=== PATIENT | female | born 1945 | race Caucasian/White ===

== ENCOUNTER 2019-07-13 05:30 | Day surgery (SDC) | payer MEDICARE, SELFPAY ==
[2019-07-12 12:58] VITALS: BMI 29.0
--- NOTE | 2019-07-13 | SCC_ITS ---
Procedure Done: [place] [address]. [place]amm[place]oe [place] cpt 28125. 3 seconds of fluoroscopic guidance, for a cumulative dose of 0.035 mGy, was provided to Dr. Edwards by the radiology department. C-arm images of the right foot were saved for the patient's permanent record. [facility]
--- NOTE | 2019-07-13 | SCC_ITS ---
Procedure Done: Right bunionectomy with double osteotomy cpt 97620. Right [place] hammertoe [place] cpt 20610. 3 seconds of fluoroscopic guidance, for a cumulative dose of 0.035 mGy, was provided to Dr. Edwards by the radiology department. C-arm images of the RIGHT foot were saved for the patient's permanent record. [facility]
[2019-07-13 05:34] VITALS: BP 159/87; PULSE 75; RESP 18; TEMP 36.6; O2SAT 99
--- NOTE | 2019-07-13 06:25 | ANES.PREANES ---
Pre-Anesthetic Assessment Pre-Anesthetic Assessment: Height/Weight: Height 1.68 m Weight 81.647 kg Preop Diagnosis: Bunion and second hammertoe, right foot Proposed Procedure: Operation Date: 07/13/19 07:00 Proposed Procedures p Bunionectomy Narinder [id number] M21.611 M2.41(Right) - Tarik Edwards DPM s Flynn Osteotomy(Right) - Tarik Edwards DPM s Hammertoe Correction(Right) - Tarik Edwards DPM Last intake: Intake Last Liquid Date 07/12/19 Last Liquid Time 18:00 Last Solid Date 07/12/19 Last Solid Time 18:00 Social: Packs per day: 1-2 cig 16-44years Comment: quit 30years Exam: Pre-Anes Outpt Exam: alert and oriented x 3 Airway: Submandibular: WNL Cervical ROM: WNL MP: 1 Dentition: Caps Additional comments: top frnot : Comments: s/p nephrectomy Hepatic: Hepatic: Cirrohsis GI: Comments: s/p colon resection Anesthetic Plan: ASA status: II Anesthesia: MAC PFSH Anesthesia PFSH: Medical History (Updated 07/12/19 @ 19:13 by Tarik Edwards DPM) High cholesterol (Acute) Hx of cancer of uterus (Acute) Hypertension (Acute) Surgical History (Updated 07/12/19 @ 19:12 by Tarik Edwards DPM) History of back surgery (Acute) Hx of cholecystectomy (Acute) Hx of colectomy (Acute) Hx of colonoscopy (Acute) Hx of hysterectomy (Acute) Hx of kidney removal (Acute) Data Anesthesia Cardiac Studies: No Data to Display
[2019-07-13] MEDS: sodium chloride 0.9% 1,000 ML 30 ML IV (06:58)
--- NOTE | 2019-07-13 08:33 | XR_ITS ---
WS: [id number] Right foot, 3 views, 07/13/2019 Clinical Data: post op Comparison: Right foot, 06/11/2019 Findings: The patient has had an osteotomy of the distal right first metatarsal with an orthopedic screw in the distal bone. There is an orthopedic plate at the medial base of the right first proximal phalanx fix ed with 2 small orthopedic screws. There is a pin extending the length of the right toe. XR/XR foot RT min 3V* [id number] Impression: 1. Bunionectomy of the right first metatarsal 2. Small plate at the base of the right first proximal phalanx, orthopedic scre w at the osteotomy of the distal right first metatarsal and pin stabilizing the right second toe.
[2019-07-13 08:36] VITALS: BP 135/72; PULSE 67; RESP 16; TEMP 36.4; O2SAT 96
[2019-07-13 08:51] VITALS: BP 148/71; PULSE 71; RESP 16; TEMP 36.6; O2SAT 97
--- NOTE | 2019-07-15 13:04 | P.OP_ITS ---
Operative Report Date of procedure: 07/15/19 Pre-op Diagnosis: Bunion and second hammertoe, right foot Post-op diagnosis: same Procedure Done: Right bunionectomy with double osteotomy cpt 02287. Right second hammertoe repair cpt 01591. Implants: [place] 28 partially-threaded cannulated headless screw 3.5 mm x 22 mm. [place] 28 nitinol staple 8 mm x 8 mm x 8 mm, angled. 0.062 K wire. Pathology: none sent Surgeon: Tarik Edwards Paper Products Inspector: See intraoperative documentation report Anesthesia: MAC Estimated blood loss (mL): 2 IV fluids (mL): 0 Urine output (mL): 0 Complications: None Condition: stable Disposition: PACU Brief History: Patient is a pleasant 73 old female who has had persistent pain at her right bunion deformity and right second hammertoe. She states that the pain has been significant and affects her ability to carry everyday activities and hobbies. She has failed conservative measures consisting of supportive shoes, accommodative shoes, padding, NSAIDs and activity modifications. Risks include pain, bleeding, numbness, infection, failure to correct deformity, overcorrection of deformity, hallux varus, transfer pressure, delayed union, malunion, swelling, bruising, hardware failure, painful retained hardware and need for further surgical intervention. Patient wishes to proceed. Procedure: Under mild sedation the patient was brought to the operating room and placed on the operating table in supine position. A timeout was performed. Anesthesia was administered by the anesthesia service. Local anesthesia was injected by myself consisting of 30 cc of 0.5% Marcaine plain and a right male block and second ray block fashion. Well-padded pneumatic tourniquet was then applied to the right ankle. Right lower extremity was then scrubbed, prepped and draped utilizing normal aseptic technique. Right foot was examined a weighted with a Esmarch bandage and the tourniquet was inflated to 250 mmHg. Attention was directed to the dorsal medial aspect of the right first metatarsal phalangeal joint where a linear longitudinal incision was made medial and parallel to the extensor hallucis longus tendon. Care was taken to retract and preserve neurovascular and tendinous structures. Bleeders were ligated and cauterized as necessary. Linear capsulotomy was performed in the head of the first metatarsal and base of the proximal phalanx were freed from their soft tissue and capsular attachments. Bony overgrowth at the medial eminence of the first metatarsal head was transected with a sagittal saw and passed from the operative field. Access guide was inserted this was a K wire in the medial head of the first metatarsal followed by a chevron type osteotomy with apex pointing distally this was performed through and through was with sagittal saw and the head of the first metatarsal was shifted laterally in a more corrected position and impacted on the first metatarsal, this was temporarily fixated followed by insertion of a [place] 28 3.5 mm x 22 mm headless compression screw utilizing standard AO technique with excellent bony apposition and compression noted. Temporary fixation was removed. Bony shelf at the medial aspect of the first metatarsal was transected and passed from operative field, rough edges were then smoothed. Lateral release was then performed in standard fashion at the first intermetatarsal space and the hallux was noted to be in a more corrected position however still did have a valgus component necessitating a Flynn osteotomy. This was carried out at the base of the proximal phalanx right hallux and fixated with a compression staple with excellent bony apposition and compression noted. Hallux was in a rectus position. Incision sites were flushed with saline solution. Medially the capsule was closed with 2-0 Vicryl. Subcutaneous tissue closed with 4-0 Vicryl and skin closed with 5-0 Monocryl in a running intermittent cuticular fashion. Attention was then directed to the dorsum of the right second toe where a linear longitudinal incision was made at the dorsal aspect of the proximal interphalangeal joint with a #15 blade. Dissection was carried down through subcutaneous tissue utilizing a combination of blunt and sharp technique. Transverse extensor tenotomy was performed and the head of the proximal phalanx was freed from its soft tissue attachments and transected with a sagittal saw this was passed from operative field, base of the intermediate phalanx was denuded of articular surface utilizing a rondure. Incision was flushed with saline solution. A 6 2 K wire was then integrated out the base of the intermediate phalanx to the distal toe and retrograded into the base of the proximal phalanx this was confirmed with fluoroscopy. Excess wire was trimmed, bent at 90 degrees and covered with a Moi ball. Incision was flushed with saline, extensor and capsular structure was closed with 4-0 Vicryl. Skin closed with 4-0 nylon. Incision was dressed with benzoin, Steri's, Adaptic, 4 x 4's, Kerlix and Rakesh, area of lateral release was closed with 4-0 nylon. And dressed in like fashion. Tourniquet was deflated and a prompt hyperemic response was noted to the distal digits of the right foot. Patient tolerated the procedure well and was transferred to the PACU with vital signs stable and vascular status intact. Following a period of postoperative monitoring she will be discharged home she was provided a cam boot and is to wear this at all times and ambulating. She is to elevate her right foot at all times while at rest. She is provided my cell phone number and is to contact me with postoperative questions or concerns.
--- NOTE | 2019-07-16 | XR_ITS ---
WS: [id number] INTRAOPERATIVE TECHNIQUE: 1 Spot fluoroscopic images for intraoperative purposes. FLUOROSCOPY TIME: 3 seconds CLINICAL INFORMATION: Right bunionectomy COMPARISON: None. FINDINGS: Pin fixation second digit. Lateral fastener fixation first proximal phalanx. Screw fixation head of f irst metatarsal. XR/XR foot RT 2V [id number] IMPRESSION: Images obtained for intraoperative purposes.
== END 2019-07-13 09:15 | disposition home or self-care (01) ==
PROVIDERS: Family Provider Family Medicine; PCP Family Medicine; Visit Provider Podiatrist Foot & Ankle Surgery
PROC: (CPT 28296; principal; 2019-07-13 07:00)
PROC: (CPT 28298; 2019-07-13 07:00)
PROC: (CPT 28285; 2019-07-13 07:00)
DX: M21.611 Bunion of right foot (principal); M20.41 Other hammer toe(s) (acquired), right foot; E78.5 Hyperlipidemia, unspecified; I10 Essential (primary) hypertension; M19.90 Unspecified osteoarthritis, unspecified site; Z82.49 Family history of ischemic heart disease and other diseases of the circulatory system
CPT/HCPCS: 28285; 28299; 12345; 73620; 73630; 76000; C1713; J0690; J2001; J2704; J3010; J3490; J7030

== ENCOUNTER → 2019-07-26 14:53 | Outpatient (BNVA) | payer MEDICARE, SELFPAY | PROVIDERS: Family Provider Family Medicine; PCP Family Medicine; Visit Provider Podiatrist Foot & Ankle Surgery | DX: Z48.89 Encounter for other specified surgical aftercare (principal) | CPT/HCPCS: 73630 ==

== ENCOUNTER 2019-07-26 15:57 | Outpatient (CLI) | payer MEDICARE, SELFPAY | END 2019-07-26 15:58 | disposition home or self-care (01) | LOC: SPT 15:58 | PROVIDERS: Family Provider Family Medicine; PCP Family Medicine; Visit Provider Podiatrist Foot & Ankle Surgery | DX: M20.41 Other hammer toe(s) (acquired), right foot (principal); M21.611 Bunion of right foot | CPT/HCPCS: L4361 ==

== ENCOUNTER → 2019-08-08 10:55 | Outpatient (BNVA) | payer MEDICARE, SELFPAY | PROVIDERS: Family Provider Family Medicine; PCP Family Medicine; Visit Provider Podiatrist Foot & Ankle Surgery | DX: Z48.89 Encounter for other specified surgical aftercare (principal); M21.611 Bunion of right foot; M20.41 Other hammer toe(s) (acquired), right foot | CPT/HCPCS: 73630 ==

== ENCOUNTER 2019-08-08 14:16 | Outpatient (CLI) | payer MEDICARE, SELFPAY | END 2019-08-08 14:17 | disposition home or self-care (01) | LOC: SPT 14:17 | PROVIDERS: Family Provider Family Medicine; PCP Family Medicine; Visit Provider Podiatrist Foot & Ankle Surgery | DX: M20.41 Other hammer toe(s) (acquired), right foot (principal) | CPT/HCPCS: L3100 ==

== ENCOUNTER → 2019-08-23 13:03 | Outpatient (BNVA) | payer MEDICARE, SELFPAY | PROVIDERS: Family Provider Family Medicine; PCP Family Medicine; Visit Provider Podiatrist Foot & Ankle Surgery | DX: Z48.89 Encounter for other specified surgical aftercare (principal); M21.611 Bunion of right foot; M20.41 Other hammer toe(s) (acquired), right foot | CPT/HCPCS: 73630 ==

== ENCOUNTER 2019-08-31 08:50 | Outpatient (CLI) | payer MEDICARE, SELFPAY | END 2019-08-31 08:51 | disposition home or self-care (01) | PROVIDERS: Family Provider Family Medicine; PCP Family Medicine; Visit Provider Family Medicine | DX: N39.0 Urinary tract infection, site not specified (principal) | CPT/HCPCS: 87086 ==

== ENCOUNTER → 2019-09-19 10:35 | Outpatient (BNVA) | payer MEDICARE, SELFPAY | PROVIDERS: Family Provider Family Medicine; PCP Family Medicine; Visit Provider Podiatrist Foot & Ankle Surgery | DX: Z48.89 Encounter for other specified surgical aftercare (principal); M21.611 Bunion of right foot | CPT/HCPCS: 73630 ==

== ENCOUNTER → 2019-10-11 13:13 | Outpatient (BNVA) | payer MEDICARE, SELFPAY | PROVIDERS: Family Provider Family Medicine; PCP Family Medicine; Visit Provider Nurse Practitioner Family | DX: N39.0 Urinary tract infection, site not specified (principal) | CPT/HCPCS: 80053; 81001; 87077; 87086; 87186 ==

== ENCOUNTER 2019-12-11 08:17 | Outpatient (CLI) | payer MEDICARE, SELFPAY ==
--- NOTE | 2019-12-11 08:00 | US_ITS ---
WS: [id number] ULTRASOUND RENAL TECHNIQUE: Ultrasound examination of both kidneys. CLINICAL INFORMATION: [email or web address] [place]8:[place]. APPT TO FOLLOW COMPARISON: May 30, 2019 FINDINGS: RIGHT: Moderate hydronephrosis right kidney. Echogenicity: Normal. Cortical thickness: 2.1 cm; Normal. Hydronephrosis: Moderate Perinephric fluid: None. Right kidney measures: 13.0 cm x 6.3 cm x 6.7 cm. LEFT: Left kidney removed. Incomplete bladder emptying. Normal visualized aorta. US/US renal BI* [id number] IMPRESSION: 1. Moderate hydronephrosis right kidney unchanged since May 30, 2019. This is slightly improved post void. 2. Left kidney removed. 3. Incomplete bladder emptying.
== END 2019-12-11 08:18 | disposition home or self-care (01) ==
LOC: US 08:21
PROVIDERS: PCP Family Medicine; Visit Provider Urology
DX: N13.5 Crossing vessel and stricture of ureter without hydronephrosis (principal); N13.30 Unspecified hydronephrosis; N39.0 Urinary tract infection, site not specified; Z90.5 Acquired absence of kidney
CPT/HCPCS: 76770; 80048; 81001

== ENCOUNTER 2020-01-17 13:10 | Outpatient (CLI) | payer MEDICARE, SELFPAY ==
--- NOTE | 2020-01-17 13:25 | MM_ITS ---
WS: [id number] Bilateral screening digital mammogram, 01/17/2020 Clinical Data: SCREEN Comparison: 11/24/2018, 10/07/2017, 10/04/2016, 09/23/2015, 03/30/2013, 02/21/2012, 01/17/2009. Findings: The breast parenchymal pattern shows fat replacement. No spiculated masses or clustered calcification s are seen. There are no secondary signs of carcinoma. MM/[place] [id number] Impression: 1. Negative bilateral mammogram unchanged. 2. Recommend annual screening mammograms. BIRADS: 1-Negative FOLLOW UP: 1 Year Follow-up The CAD mechanical and auto body car checker was used.
== END 2020-01-17 13:11 | disposition home or self-care (01) ==
LOC: RADSHAW 13:16
PROVIDERS: PCP Family Medicine; Visit Provider Family Medicine
DX: Z12.31 Encounter for screening mammogram for malignant neoplasm of breast (principal)
CPT/HCPCS: 77067

== ENCOUNTER → 2020-02-12 08:30 | Outpatient (BNVA) | payer MEDICARE, SELFPAY | PROVIDERS: PCP Family Medicine; Visit Provider Urology | DX: N13.30 Unspecified hydronephrosis (principal) | CPT/HCPCS: 80053; 81001; 87077; 87086; 87184; 87186 ==

== ENCOUNTER 2020-05-29 12:51 | Outpatient (CLI) | payer MEDICARE, SELFPAY ==
--- NOTE | 2020-05-29 13:03 | USCV_ITS ---
Lulu Lisbeth Age: 74 Gender: F : 1945 Exam Date: 05/29/2020 13:38 Ordering Phys: Mary Lou Key MD Technologist: Monique Milton [place] [facility] [place]: DYSPNEA BP: 152 / 78 HR: 78 Rhythm: Sinus Technical Quality: Fair MEASUREMENTS (Male / Female) Normal Values 2D ECHO LV Diastolic Diameter PLAX 4.0 cm 4.2 - 5.9 / 3.9 - 5.3 cm LV Systolic Diameter PLAX 2.2 cm LV Chamber Size 4.0 cm IVS Diastolic Thickness 1.3 cm 0.6 - 1.0 / 0.6 - 0.9 cm IVS Systolic Thickness 1.8 cm LVPW Diastolic Thickness 1.0 cm 0.6 - 1.0 / 0.6 - 0.9 cm LVPW Systolic Thickness 1.5 cm RV Chamber Size 2.7 cm LVOT Diameter 2.0 cm LV Ejection Fraction 2D Teich 75.4 % LA Diameter 3.7 cm LA Width 3.5 cm LA Height 5.1 cm RA Width 2.4 cm RA Height 3.9 cm Aorta at Sinotubular Diameter 2.9 cm M-MODE LV Diastolic Diameter MM 4.6 cm 4.2 - 5.9 / 3.9 - 5.3 cm LV Systolic Diameter MM 3.1 cm LV Ejection Fraction MM Teich 61.5 % IVS Diastolic Thickness MM 1.1 cm 0.6 - 1.0 / 0.6 - 0.9 cm IVS Systolic Thickness MM 1.5 cm LVPW Diastolic Thickness MM 1.0 cm 0.6 - 1.0 / 0.6 - 0.9 cm LVPW Systolic Thickness MM 1.8 cm RV Diastolic Diameter MM 2.5 cm Aortic Annulus Diameter 2.6 cm LA Ao Ratio MM 1.6 MV E Point Septal Separation 0.7 cm DOPPLER AV Peak Velocity 228.0 cm/s LVOT Peak Velocity 101.0 cm/s AV Area Cont Eq vti 1.6 cm squared AV Area Cont Eq pk 1.4 cm squared MV Area PHT 4.9 cm squared Mitral E to A Ratio 0.7 MV E' Velocity 35.0 cm/s Mitral E to MV E' Ratio 9.9 Mitral E to LV E' Lateral Ratio 9.5 Mitral E to LV E' Septal Ratio 10.6 TR Peak Velocity 245.1 cm/s TR Peak Gradient 24.0 mmHg TR Mean Velocity 209.5 cm/s TR Mean Gradient 18.3 mmHg TR Velocity Time Integral 79.4 cm TV Peak E Velocity 72.0 cm/s Right Atrial Pressure 3.0 mmHg Pulmonary Artery Systolic Pressu 27.0 mmHg PV Peak Velocity 80.0 cm/s FINDINGS Left Ventricle Normal left ventricular size, systolic function and wall thickness, with no regional wall motion abnormalities. No regional wall motion abnormalities. Grade I/IV diastolic dysfunction (abnormal relaxation filling pattern), normal to mildly elevated filling pressures. Right Ventricle The right ventricle is normal in size and function. Right Atrium The right atrium is normal in size. Left Atrium The left atrium is normal in size. Mitral Valve Thickened mitral valve. Aortic Valve Thickened aortic valve. Moderate aortic valve calcification. Mild aortic valve regurgitation. Tricuspid Valve Structurally normal tricuspid valve. Pulmonic Valve Trace pulmonary valve regurgitation. Pericardium Normal pericardium without effusion. Aorta Normal ascending aorta dimension. CONCLUSIONS Normal left ventricular size, systolic function and wall thickness, with no regional wall motion abnormalities. LV ejection fraction of 75% Grade I/IV diastolic dysfunction (abnormal relaxation filling pattern), normal to mildly elevated filling pressures. Mild aortic valve regurgitation. Features of aortic valve sclerosis Thickened mitral valve. Trace pulmonary valve regurgitation. Normal pulmonary artery systolic pressure There is no pericardial effusion. There are no intracardiac masses. Compared to the previous study from 09/23/2015, there may not be a significant change Dr Chiquis Mccarthy MD [facility] (Electronically Signed) Final Date: 29 May 2020 21:07 S
== END 2020-05-29 12:52 | disposition home or self-care (01) ==
PROVIDERS: PCP Family Medicine; Visit Provider Family Medicine
DX: R06.00 Dyspnea, unspecified (principal); I08.0 Rheumatic disorders of both mitral and aortic valves
CPT/HCPCS: 93306

== ENCOUNTER 2020-06-05 07:52 | Outpatient (CLI) | payer MEDICARE, SELFPAY ==
[2020-06-05 09:13] VITALS: BMI 29.0
--- NOTE | 2020-06-05 10:07 | ECG_ITS ---
[facility] Test Date: 2020-06-05 Pat Name: Lisbeth Lawson Department: Room: Gender: Female Scale Expert: : 1945 Requested By: Mary Lou Lockett Order Number: [id number] Aurora MD: MITCHELL SALEH Interpretive Statements NAME OF STUDY: LEXISCAN SESTAMIBI STRESS TEST INDICATION: Dyspnea, NOTE: Please note that this is the electrocardiogram portion of the Lexiscan/Sestamibi stress test. The perfusion scan will be documented separately. DATA: Baseline heart rate was 59 beats per minute. Baseline blood pressure was 139/73 millimeters of mercury. Target heart rate was 145. Maximum heart rate achieved was 106. which was 73 % of the predicted target heart rate. Maximum blood pressure was 142/75 millimeters of mercury. The reason for ending the test was completion of the protocol. The patient did not experience any symptoms. ELECTROCARDIOGRAM: BASELINE: Sinus bradycardia. Normal axis. Otherwise, no ST-T changes suggestive of ischemia noted. No arrhythmia noted. EXERCISE: After Lexiscan injection, no ST-T changes suggestive of ischemic noted. No arrhythmia noted. CONCLUSION: Please note due to baseline abnormality of the EKG specificity and sensitivity of the EKG portion of LexiScan MIBI stress test will be low 1. EKG not suggestive of ischemia 2. Lexiscan injection unremarkable. 3. Perfusion scan will be documented separately. Electronically Signed On 06-05-2020 18:28:07 KNITTING MACHINE OPERATOR HELPER by MITCHELL SALEH [email or web address]
--- NOTE | 2020-06-05 10:08 | NMCV_ITS ---
NM paul perf SPECT r/s* [id number] Lisbeth Lawson Age: 74 Gender: F : 1945 Exam Date: 06/05/2020 09:52 Ordering Phys: Mary Lou Key MD Technologist: STEPHANIE Meadows Exam Location: [facility] Indications: Dyspnea STRESS TEST Please see separate stress test report in [facility] for full findings IMAGE PROTOCOL Rest/Stress 1 Lexiscan Day Radiopharmaceutical Dose (mCi) Administration Site Administered by Rest: Tc-99m 10.8 IV Simran Mable, CHERRY PITTER Sestamibi Stress:Tc-99m 32.6 IV Simran Mable, CHERRY PITTER Sestamibi Rest: 05-Jun-2020 60 Discovery 630 Stress: 05-Jun-2020 45 Discovery 630 0.4mg Lexiscan. Images obtained in supine and prone position. SPECT RESULTS Technical Quality: Good Raw Data Analysis: Normal Image Corrections: No attenuation or motion correction applied Summed Stress Score: 0 Summed Rest Score: 0 Summed Difference Score: 0 PERFUSION FINDINGS SPECT images demonstrate homogeneous tracer distribution throughout the myocardium. FUNCTIONAL RESULTS (calculated via Gated SPECT) Stress Image LV EF (%): 87 Stress EDV (mL):68 TID: 0.92 Stress ESV (mL):9 Rest Image LV EF (%): 87 FUNCTIONAL FINDINGS: There is normal left ventricular systolic function. IMPRESSIONS Myocardial perfusion imaging is normal and low probability for obstructive coronary artery disease. EKG segment will be documented separately. Ovidio Fitzpatrick MD (Electronically Signed) Final Date: 05 June 2020 17:01 S
[2020-06-05] MEDS: regadenoson 0.4 Mg/5 ml Syringe IVP (11:07)
[2020-06-05 11:22] VITALS: BP 136/70; PULSE 91
== END 2020-06-05 07:53 | disposition home or self-care (01) ==
PROVIDERS: PCP Family Medicine; Visit Provider Family Medicine
DX: R06.00 Dyspnea, unspecified (principal)
CPT/HCPCS: 78452; 93017; A9500; J2785

== ENCOUNTER 2021-02-27 10:49 | Outpatient (CLI) | payer MEDICARE, SELFPAY ==
--- NOTE | 2021-02-27 10:55 | MM_ITS ---
WS: [id number] BILATERAL SCREENING DIGITAL MAMMOGRAM WITH CAD HISTORY: SCREENING COMPARISON: 01/17/2020 and 11/24/2018 Bilateral CC and MLO views submitted. Computer aided detection analyzed. Breast composition: There are scattered areas of fibroglandular density. No suspicious masses, microc alcifications or architectural distortion. Bilateral benign calcifications in each breast. MM/[place] [id number] IMPRESSION: BI-RADS: 2-Benign FOLLOW UP: 1 Year Follow-up
== END 2021-02-27 10:50 | disposition home or self-care (01) ==
PROVIDERS: PCP Family Medicine; Visit Provider Family Medicine
DX: Z12.31 Encounter for screening mammogram for malignant neoplasm of breast (principal)
CPT/HCPCS: 77067

== ENCOUNTER 2021-02-27 10:58 | Outpatient (CLI) | payer MEDICARE, SELFPAY ==
[2021-02-27 12:09] LABS: Hemoglobin 12.4 g/dL (11.5-15.3)
[2021-02-27 12:33] LABS: Anion Gap 17.9 (5-19); Blood Urea Nitrogen 37 mg/dL (8-23); Carbon Dioxide 19 mmol/L (22-29); Chloride 106 mmol/L (98-107); Ferritin 580 ng/mL (15-150); Glucose 86 mg/dL (65-115); Iron 30 ug/dL (37-145); Magnesium 1.8 mg/dL (1.7-2.3); Osmolality Calculated 294 mOsm/kg (285-295); Percent Saturation 12.7 % (20-50); Phosphorus 4.3 mg/dL (2.5-4.5); Potassium 4.9 mmol/L (3.5-5.1); Sodium 138 mmol/L (136-145); Total Iron Binding Capacity 235 mcg/dl; Unsaturated Iron Binding 205 ug/dL (112-347)
[2021-02-27 12:50] LABS: 25 Hydroxy Vitamin D 31 ng/mL (30-100)
[2021-02-27 12:58] LABS: Calcium 8.9 mg/dL (8.5-10.5)
[2021-02-27 13:06] LABS: Parathyroid Hormone 134.1 pg/mL (15-65)
== END 2021-02-27 10:59 | disposition home or self-care (01) ==
PROVIDERS: PCP Family Medicine; Visit Provider Internal Medicine
DX: N18.4 Chronic kidney disease, stage 4 (severe) (principal); E55.9 Vitamin D deficiency, unspecified; E21.3 Hyperparathyroidism, unspecified
CPT/HCPCS: 80048; 82306; 82310; 82728; 83540; 83550; 83735; 83970; 84100; 85018

== ENCOUNTER 2021-09-01 13:48 | Outpatient (CLI) | payer MEDICARE, SELFPAY ==
--- NOTE | 2021-09-01 14:16 | XR_ITS ---
WS: [id number] DEXA (DUAL ENERGY X-RAY ABSORPTIOMETRY) Bone mineral density was performed using a [employer] machine. HISTORY: ASYMPTOMATIC MENOPAUSAL STATE COMPARISON: 11/24/2018 and 09/07/2016 Lumbar spine BMD (L1-L4): 1.177 g/cm2 T score: 0.0 Z score: 1.2 Total hip BMD: Left: 0.814 g/cm2. T score: -1.5 Z score: -0.1 Right: 0.874 g/cm2. T score: -1.1 Z score: 0.3 10 year probability of a major osteoporotic fracture is 13%. Compared to the prior study from 11/24/2018. Bilateral hips bone mineral density has decreased by 9.7%. Lumbar spine bone mineral density was not performed on 11/24/2018. Bone mineral density has decreased by 2.3% since 2017 within the lumbar spine. XR/XR DEXA axial skeleton* [id number] IMPRESSION: OSTEOPENIA based upon the WHO classification for females. Significant decrease in bone mineral density within the hips since the prior study.
== END 2021-09-01 13:49 | disposition home or self-care (01) ==
LOC: RAD 13:54
PROVIDERS: PCP Family Medicine; Visit Provider Family Medicine
DX: Z78.0 Asymptomatic menopausal state (principal)
CPT/HCPCS: 77080

== ENCOUNTER 2021-10-27 10:20 | Outpatient (CLI) | payer MEDICARE, SELFPAY ==
[2021-10-27 11:24] LABS: Hemoglobin 11.5 g/dL (11.5-15.3)
[2021-10-27 11:45] LABS: Albumin Level 4.3 g/dL (3.5-5.2); Blood Urea Nitrogen 44 mg/dL (8-23); Calcium 8.8 mg/dL (8.5-10.5); Carbon Dioxide 20 mmol/L (22-29); Chloride 109 mmol/L (98-107); Glucose 101 mg/dL (65-115); Magnesium 1.8 mg/dL (1.7-2.3); Osmolality Calculated 299 mOsm/kg (285-295); Phosphorus 4.5 mg/dL (2.5-4.5); Sodium 139 mmol/L (136-145); Uric Acid 7.7 mg/dL (2.4-5.7)
[2021-10-27 11:46] LABS: Calcium 9.5 mg/dL (8.5-10.5)
[2021-10-27 11:53] LABS: Parathyroid Hormone 62.9 pg/mL (15-65)
[2021-10-27 12:19] LABS: Glucose Urine UA Norm (Normal); Protein Urine Trace (Negative); Urine Appearance Hazy (CLEAR); Urine Color Yellow (Yellow); pH Urine 5 (5-7)
[2021-10-27 12:20] LABS: Add Urine Microscopic? YES; Bilirubin Urine Neg (Negative); Blood Urine 3+ (Negative); Ketones Urine Negative (Negative); Leukocyte Esterase Urine 2+ (Negative); Nitrate Urine Positive (Negative); RBC Urine 25-40 /hpf (0-2); Squamous Epithelial Cell Urine RARE /hpf (0-5); Urine Creatinine 43 mg/dL (28-217); Urobilinogen Urine Neg (Negative); WBC Urine 55-80 /hpf (0-5)
[2021-10-27 12:21] LABS: Add Urine Culture? Yes; Bacteria Urine 2+ /hpf
[2021-10-27 13:37] LABS: Ferritin 485 ng/mL (15-150); Iron 45 ug/dL (37-145); Percent Saturation 16.9 % (20-50); Total Iron Binding Capacity 265 mcg/dl; Unsaturated Iron Binding 220 ug/dL (112-347)
== END 2021-10-27 10:21 | disposition home or self-care (01) ==
PROVIDERS: PCP Family Medicine; Visit Provider Internal Medicine
DX: R79.89 Other specified abnormal findings of blood chemistry (principal); N18.4 Chronic kidney disease, stage 4 (severe); D64.9 Anemia, unspecified; E21.3 Hyperparathyroidism, unspecified; R80.9 Proteinuria, unspecified; E87.5 Hyperkalemia
CPT/HCPCS: 80048; 81001; 82040; 82310; 82570; 82728; 83540; 83550; 83735; 83970; 84100; 84550; 85018; 87077; 87086; 87186

== ENCOUNTER 2022-02-02 12:10 | Outpatient (CLI) | payer MEDICARE, SELFPAY ==
[2022-02-02 13:12] LABS: Anion Gap 18.8 (5-19); Blood Urea Nitrogen 41 mg/dL (8-23); Calcium 9.7 mg/dL (8.5-10.5); Carbon Dioxide 21 mmol/L (22-29); Chloride 106 mmol/L (98-107); Glucose 96 mg/dL (65-115); Osmolality Calculated 302 mOsm/kg (285-295); Potassium 4.8 mmol/L (3.5-5.1); Sodium 141 mmol/L (136-145)
[2022-02-02 13:16] LABS: Urine Color Yellow (Yellow)
[2022-02-02 13:17] LABS: Add Urine Culture? Yes; Add Urine Microscopic? YES; Bacteria Urine 1+ /hpf; Bilirubin Urine Neg (Negative); Blood Urine 3+ (Negative); Glucose Urine UA Norm (Normal); Ketones Urine Negative (Negative); Leukocyte Esterase Urine 2+ (Negative); Nitrate Urine Negative (Negative); Protein Urine 1+ (Negative); RBC Urine 15-25 /hpf (0-2); Squamous Epithelial Cell Urine 0-4 /hpf (0-5); Urine Appearance Cloudy (CLEAR); Urobilinogen Urine Norm (Negative); WBC Urine TOO NUMEROUS TO CNT /hpf (0-5); pH Urine 5 (5-7)
== END 2022-02-02 12:11 | disposition home or self-care (01) ==
LOC: LAB 12:12
PROVIDERS: PCP Family Medicine; Visit Provider Internal Medicine
DX: N18.4 Chronic kidney disease, stage 4 (severe) (principal)
CPT/HCPCS: 80048; 81001; 87077; 87086; 87186

== ENCOUNTER 2022-03-02 09:28 | Outpatient (CLI) | payer MEDICARE, SELFPAY ==
[2022-03-02 09:58] LABS: Hemoglobin 11.8 g/dL (11.5-15.3)
[2022-03-02 10:38] LABS: Calcium 9.8 mg/dL (8.5-10.5)
[2022-03-02 10:45] LABS: Parathyroid Hormone 37.1 pg/mL (15-65)
[2022-03-02 10:49] LABS: Albumin Level 4.5 g/dL (3.5-5.2); Anion Gap 17.6 (5-19); Blood Urea Nitrogen 54 mg/dL (8-23); Calcium 9.9 mg/dL (8.5-10.5); Carbon Dioxide 21 mmol/L (22-29); Chloride 105 mmol/L (98-107); Ferritin 488 ng/mL (15-150); Glucose 125 mg/dL (65-115); Iron 77 ug/dL (37-145); Osmolality Calculated 304 mOsm/kg (285-295); Percent Saturation 28.2 % (20-50); Phosphorus 5.5 mg/dL (2.5-4.5); Potassium 4.6 mmol/L (3.5-5.1); Sodium 139 mmol/L (136-145); Total Iron Binding Capacity 273 mcg/dl; Unsaturated Iron Binding 196 ug/dL (112-347); Uric Acid 8.1 mg/dL (2.4-5.7)
[2022-03-02 10:58] LABS: Creatinine Urine, Random 57 mg/dL (28-217); Total Protein, Random Urine 89.5 mg/dL (0.0-20.0)
[2022-03-02 12:24] LABS: Bilirubin Urine Neg (Negative); Blood Urine 3+ (Negative); Glucose Urine UA Norm (Normal); Ketones Urine Negative (Negative); Nitrate Urine Negative (Negative); Protein Urine 1+ (Negative); Urine Appearance Cloudy (CLEAR); Urine Color Yellow (Yellow); pH Urine 5 (5-7)
[2022-03-02 12:25] LABS: Add Urine Microscopic? YES; Leukocyte Esterase Urine 2+ (Negative); Urobilinogen Urine Norm (Negative)
[2022-03-02 12:30] LABS: Add Urine Culture? Yes; Bacteria Urine 4+ /hpf; RBC Urine TOO NUMEROUS TO CNT /hpf (0-2); Squamous Epithelial Cell Urine 0-4 /hpf (0-5); WBC Urine TOO NUMEROUS TO CNT /hpf (0-5)
== END 2022-03-02 09:29 | disposition home or self-care (01) ==
PROVIDERS: PCP Family Medicine; Visit Provider Internal Medicine
DX: N18.4 Chronic kidney disease, stage 4 (severe) (principal); E87.2 Acidosis; E87.5 Hyperkalemia
CPT/HCPCS: 36415; 80048; 81001; 82040; 82310; 82575; 82728; 83540; 83550; 83970; 84100; 84156; 84550; 85018

== ENCOUNTER 2022-03-25 11:05 | Outpatient (CLI) | payer MEDICARE, SELFPAY ==
--- NOTE | 2022-03-25 11:10 | MM_ITS ---
WS: [id number] VIEWS: MLO and CC views both breasts. 3D digital tomosynthesis is also included in this exam. Comparison made with prior exam of 09/23/2015, 10/04/2016, 10/07/2017, 11/24/2018, 01/17/2020, 02/27/2021,. Findings: There was no sign of mass, architectural distortion or suspicious calcification in either breast. Sc attered fibroglandular densities MM/[place] [id number] Impression: BI-RADS: 2-Benign FOLLOW-UP: 1 Year Follow-up This mammogram was also analyzed by the Computer Aided Detection System R2 Imag e Sand Caster Apprentice.
== END 2022-03-25 11:06 | disposition home or self-care (01) ==
LOC: RAD 11:06
PROVIDERS: PCP Family Medicine; Visit Provider Family Medicine
DX: Z12.31 Encounter for screening mammogram for malignant neoplasm of breast (principal)
CPT/HCPCS: 77063; 77067

== ENCOUNTER 2022-04-06 11:30 | Outpatient (CLI) | payer MEDICARE, SELFPAY ==
[2022-04-06 12:47] LABS: Anion Gap 18.5 (5-19); Blood Urea Nitrogen 35 mg/dL (8-23); Calcium 8.9 mg/dL (8.5-10.5); Carbon Dioxide 19 mmol/L (22-29); Chloride 108 mmol/L (98-107); Glucose 98 mg/dL (65-115); Osmolality Calculated 300 mOsm/kg (285-295); Phosphorus 4.2 mg/dL (2.5-4.5); Potassium 4.5 mmol/L (3.5-5.1); Sodium 141 mmol/L (136-145)
== END 2022-04-06 11:31 | disposition home or self-care (01) ==
PROVIDERS: PCP Family Medicine; Visit Provider Internal Medicine
DX: N17.9 Acute kidney failure, unspecified (principal); N18.4 Chronic kidney disease, stage 4 (severe); E83.39 Other disorders of phosphorus metabolism
CPT/HCPCS: 36415; 80048; 84100

== ENCOUNTER 2022-06-02 11:42 | Outpatient (CLI) | payer MEDICARE, SELFPAY ==
[2022-06-02 12:39] LABS: Hemoglobin 12.8 g/dL (11.5-15.3)
[2022-06-02 12:59] LABS: Albumin Level 4.1 g/dL (3.5-5.2); Anion Gap 16.4 (5-19); Blood Urea Nitrogen 37 mg/dL (8-23); Calcium 9.4 mg/dL (8.5-10.5); Carbon Dioxide 23 mmol/L (22-29); Chloride 105 mmol/L (98-107); Ferritin 349 ng/mL (15-150); Glucose 89 mg/dL (65-115); Iron 95 ug/dL (37-145); Magnesium 1.8 mg/dL (1.7-2.3); Osmolality Calculated 298 mOsm/kg (285-295); Percent Saturation 34.7 % (20-50); Phosphorus 4.1 mg/dL (2.5-4.5); Potassium 4.4 mmol/L (3.5-5.1); Sodium 140 mmol/L (136-145); Total Iron Binding Capacity 273 mcg/dl; Unsaturated Iron Binding 178 ug/dL (112-347); Uric Acid 8.9 mg/dL (2.4-5.7)
[2022-06-02 13:02] LABS: Bilirubin Urine Neg (Negative); Blood Urine 3+ (Negative); Glucose Urine UA Norm (Normal); Ketones Urine Negative (Negative); Nitrate Urine Positive (Negative); Protein Urine 2+ (Negative); Specific Gravity, Urine 1.015 (1.005-1.030); Urine Appearance Hazy (CLEAR); Urine Color Yellow (Yellow); Urobilinogen Urine Norm (Negative); pH Urine 5 (5-7)
[2022-06-02 13:03] LABS: Add Urine Culture? Yes; Add Urine Microscopic? YES; Bacteria Urine 3+ /hpf; Hyaline Casts Urine 0-4 /lpf; Leukocyte Esterase Urine 2+ (Negative); RBC Urine TOO NUMEROUS TO CNT /hpf (0-2); Squamous Epithelial Cell Urine 0-4 /hpf (0-5); WBC Urine TOO NUMEROUS TO CNT /hpf (0-5)
[2022-06-02 13:05] LABS: Urine Creatinine 108 mg/dL (28-217)
[2022-06-02 13:06] LABS: UPRO/UCREAT Ratio 0.79 mg/mg CR; Urine Protein Random 85 mg/dL
[2022-06-02 13:08] LABS: Calcium 9.4 mg/dL (8.5-10.5)
[2022-06-02 14:19] LABS: Parathyroid Hormone 118.6 pg/mL (15-65)
== END 2022-06-02 11:43 | disposition home or self-care (01) ==
PROVIDERS: PCP Family Medicine; Visit Provider Internal Medicine
DX: N17.9 Acute kidney failure, unspecified (principal); N18.4 Chronic kidney disease, stage 4 (severe); E87.20 Acidosis, unspecified; E79.0 Hyperuricemia without signs of inflammatory arthritis and tophaceous disease; E83.39 Other disorders of phosphorus metabolism; D63.1 Anemia in chronic kidney disease; R80.9 Proteinuria, unspecified
CPT/HCPCS: 80048; 81001; 82040; 82310; 82570; 82728; 83540; 83550; 83735; 83970; 84100; 84156; 84550; 85018; 87077; 87086; 87186

== ENCOUNTER 2022-09-20 09:47 | Outpatient (CLI) | payer MEDICARE, SELFPAY ==
[2022-09-20 11:16] LABS: Albumin Level 4.2 g/dL (3.5-5.2); Anion Gap 18.7 (5-19); Blood Urea Nitrogen 42 mg/dL (8-23); Calcium 8.9 mg/dL (8.5-10.5); Carbon Dioxide 20 mmol/L (22-29); Chloride 108 mmol/L (98-107); Glucose 94 mg/dL (65-115); Magnesium 1.8 mg/dL (1.7-2.3); Osmolality Calculated 304 mOsm/kg (285-295); Phosphorus 4.3 mg/dL (2.5-4.5); Potassium 4.7 mmol/L (3.5-5.1); Sodium 142 mmol/L (136-145); Uric Acid 7.5 mg/dL (2.4-5.7)
[2022-09-20 11:17] LABS: Calcium 8.9 mg/dL (8.5-10.5)
[2022-09-20 11:21] LABS: Parathyroid Hormone 84.6 pg/mL (15-65)
[2022-09-20 11:24] LABS: UPRO/UCREAT Ratio 1.23 mg/mg CR; Urine Creatinine 61 mg/dL (28-217); Urine Protein Random 75 mg/dL
[2022-09-20 11:26] LABS: Estmated Average Glucose 103; Hemoglobin A1C 5.2 % (4.0-6.0)
[2022-09-20 11:59] LABS: Glucose Urine UA Norm (Normal); Ketones Urine Negative (Negative); Protein Urine 1+ (Negative); Specific Gravity, Urine 1.015 (1.005-1.030); Urine Appearance SL Hazy (CLEAR); Urine Color Light yellow (Yellow); pH Urine 5 (5-7)
[2022-09-20 12:00] LABS: Add Urine Microscopic? YES; Bilirubin Urine Neg (Negative); Blood Urine 2+ (Negative); Leukocyte Esterase Urine 1+ (Negative); Nitrate Urine Negative (Negative); Urobilinogen Urine Norm (Negative)
[2022-09-20 12:02] LABS: Add Urine Culture? Yes; Amorphous Sediment Urine 1+ /hpf; Bacteria Urine 2+ /hpf; Squamous Epithelial Cell Urine 0-4 /hpf (0-5); WBC Urine 15-25 /hpf (0-5)
== END 2022-09-20 09:48 | disposition home or self-care (01) ==
PROVIDERS: PCP Family Medicine; Visit Provider Internal Medicine
DX: N17.9 Acute kidney failure, unspecified (principal); N18.4 Chronic kidney disease, stage 4 (severe); E79.0 Hyperuricemia without signs of inflammatory arthritis and tophaceous disease; E83.39 Other disorders of phosphorus metabolism; N25.81 Secondary hyperparathyroidism of renal origin
CPT/HCPCS: 36415; 80048; 81001; 82040; 82310; 82570; 83036; 83735; 83970; 84100; 84156; 84550; 87077; 87086; 87186

== ENCOUNTER 2022-10-18 11:43 | Outpatient (CLI) | payer MEDICARE, SELFPAY ==
--- NOTE | 2022-10-18 12:20 | USCV_ITS ---
Lisbeth Lawson Age: 76 Gender: F : 1945 Exam Date: 10/18/2022 12:43 Ordering Phys: Mary Lou Key MD Technologist: Giancarlo Medeiros [place] [facility] [place]: rheumatic tricuspid insufficiency BP: 172 / 88 HR: 81 Rhythm: Sinus Technical Quality: Adequate MEASUREMENTS (Male / Female) Normal Values 2D ECHO LVOT Diameter 2.0 cm LV Ejection Fraction MOD 2C 72.8 % LV Ejection Fraction 2C AL 74.4 % LA Diameter 3.6 cm LA Width 4.1 cm LA Height 4.7 cm RA Width 3.3 cm RA Height 4.6 cm Aorta at Sinotubular Diameter 2.1 cm IVC Diameter 1.7 cm M-MODE Aortic Annulus Diameter 2.4 cm LA Ao Ratio MM 1.6 MV E Point Septal Separation 0.4 cm DOPPLER AV Peak Velocity 326.0 cm/s LVOT Peak Velocity 123.0 cm/s AV Area Cont Eq vti 1.2 cm squared AV Area Cont Eq pk 1.2 cm squared MV Peak Velocity 182.0 cm/s MV Area PHT 5.5 cm squared Mitral E to A Ratio 0.9 MV E' Velocity 57.5 cm/s Mitral E to MV E' Ratio 8.0 Mitral E to LV E' Lateral Ratio 8.4 Mitral E to LV E' Septal Ratio 7.6 TR Peak Velocity 350.0 cm/s TR Peak Gradient 49.0 mmHg TR Mean Velocity 266.1 cm/s TR Mean Gradient 30.1 mmHg TR Velocity Time Integral 81.9 cm Right Atrial Pressure 3.0 mmHg Pulmonary Artery Systolic Pressu 52.0 mmHg PV Peak Velocity 101.3 cm/s RV Acceleration Time 0.1 s RV Ejection Time 0.3 s RV AcT/ET 0.5 FINDINGS Left Ventricle Left ventricle is normal in size. LV systolic function is normal with EF of 60 to 65%. No regional wall motion abnormalities are seen. Grade 1 diastolic dysfunction Right Ventricle Normal in size and function Right Atrium Normal in size Left Atrium Normal in size Mitral Valve Moderate mitral annular calcification is seen. Mild mitral regurgitation. Aortic Valve Aortic valve is calcified and thickened. Moderate aortic stenosis with aortic valve area of 1.18 cm squared and mean gradient across aortic valve of 25 mmHg. Moderate aortic regurgitation. Tricuspid Valve Mild tricuspid regurgitation. RVSP is 50 to 55 mmHg. This is consistent with moderate pulmonary hypertension. Pulmonic Valve Not well-visualized. Mild pulmonic regurgitation. Pericardium Normal Aorta Normal in size IVC Appears to be normal CONCLUSIONS LV systolic function is normal with EF of 60 to 65%. Grade 1 diastolic dysfunction. Mild mitral regurgitation. Moderate aortic stenosis. Moderate aortic regurgitation. Mild tricuspid regurgitation. Moderate pulmonary hypertension. Compared to prior echocardiogram from 2019, patient now has moderate aortic stenosis and moderate aortic regurgitation. Arnulfo Nunez MD (Electronically Signed) Final Date: 23 October 2022 17:01 S
== END 2022-10-18 11:44 | disposition home or self-care (01) ==
LOC: RAD 11:49
PROVIDERS: PCP Family Medicine; Visit Provider Family Medicine
DX: I35.8 Other nonrheumatic aortic valve disorders (principal); I07.1 Rheumatic tricuspid insufficiency
CPT/HCPCS: 93306

== ENCOUNTER 2022-10-25 06:00 | Outpatient (RCR) | payer MEDICARE, SELFPAY | END 2022-11-24 23:59 | disposition home or self-care (01) | LOC: SPT 06:00 | PROVIDERS: Visit Provider Family Medicine | DX: I89.0 Lymphedema, not elsewhere classified (principal) | CPT/HCPCS: 29581; 97140; 97161 ==

== ENCOUNTER 2022-11-25 06:00 | Outpatient (RCR) | payer MEDICARE, SELFPAY | END 2022-12-24 23:59 | disposition home or self-care (01) | LOC: SPT 06:00 | PROVIDERS: Visit Provider Family Medicine | DX: I89.0 Lymphedema, not elsewhere classified (principal) | CPT/HCPCS: 97140 ==

== ENCOUNTER 2022-12-25 06:00 | Outpatient (RCR) | payer MEDICARE, SELFPAY | END 2023-01-24 23:59 | disposition home or self-care (01) | LOC: SPT 06:00 | PROVIDERS: Visit Provider Family Medicine | DX: I89.0 Lymphedema, not elsewhere classified (principal) | CPT/HCPCS: 97140 ==

== ENCOUNTER 2023-01-27 09:44 | Outpatient (CLI) | payer MEDICARE, SELFPAY ==
[2023-01-27 11:02] LABS: Total Protein, Random Urine 117.5 mg/dL (0.0-20.0)
== END 2023-01-27 09:45 | disposition home or self-care (01) ==
PROVIDERS: Visit Provider Internal Medicine
DX: N18.4 Chronic kidney disease, stage 4 (severe) (principal); R80.9 Proteinuria, unspecified
CPT/HCPCS: 36415; 82565; 84156

== ENCOUNTER 2023-07-25 14:08 | Outpatient (CLI) | payer MEDICARE, SELFPAY ==
--- NOTE | 2023-07-25 14:18 | MM_ITS ---
WS: [id number] BILATERAL 3D TOMOSYNTHESIS DIGITAL SCREENING MAMMOGRAPHY WITH CAD CLINICAL INFORMATION: SCREENING HISTORY: Screening mammogram. No current complaints. COMPARISON: 03/25/2022 TECHNIQUE: Bilateral CC and MLO views. FINDINGS: Scattered fibroglandular densities bilaterally. No suspicious focal mass, asymmetry, calcifications, or architectural distortion. No evidence of malignancy. Punctate and lucent centered calcifications. Vascular calcifications. IMPRESSION: MM/[place] [id number] BI-RADS: 2-Benign FOLLOW UP: 1 Year Follow-up Recommend return to annual screening mammography.
== END 2023-07-25 14:09 | disposition home or self-care (01) ==
LOC: RAD 14:09
PROVIDERS: Visit Provider Family Medicine
DX: Z12.31 Encounter for screening mammogram for malignant neoplasm of breast (principal); R92.323 Mammographic fibroglandular density, bilateral breasts
CPT/HCPCS: 77063; 77067

== ENCOUNTER 2024-08-06 12:57 | Outpatient (CLI) | payer MEDICARE, SELFPAY ==
--- NOTE | 2024-08-06 13:20 | MM_ITS ---
WS: [id number] BILATERAL 3D TOMOSYNTHESIS DIGITAL SCREENING MAMMOGRAPHY WITH CAD CLINICAL INFORMATION: SCREENING HISTORY: Screening mammogram. No current complaints. COMPARISON: 2023 TECHNIQUE: Bilateral CC and MLO views. FINDINGS: Scattered fibroglandular densities bilaterally. No suspicious focal mass, asymmetry, calcifications, or architectural distortion. No evidence of malignancy. Incidental lucent centered calcifications. Punctate calcifications. Vascular calcifications. MM/MM [facility] tomosynthesis [id number] IMPRESSION: DENSITY: There are scattered areas of fibroglandular density. BI-RADS: 2 - Benign. FOLLOW UP: 1 Year Follow-up Recommend return to annual screening mammography.
== END 2024-08-06 12:58 | disposition home or self-care (01) ==
PROVIDERS: PCP Family Medicine; Visit Provider Family Medicine
DX: Z12.31 Encounter for screening mammogram for malignant neoplasm of breast (principal); R92.323 Mammographic fibroglandular density, bilateral breasts; R92.1 Mammographic calcification found on diagnostic imaging of breast
CPT/HCPCS: 77063; 77067